=== PATIENT | female | born 2000 | race Caucasian/White ===

== ENCOUNTER 2025-02-06 04:07 | Emergency (ER) | payer MEDICAID, SELFPAY ==
[2025-02-06 04:10] VITALS: BMI 17.2
--- NOTE | 2025-02-06 04:13 | EKG_ITS ---
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
[2025-02-06 04:30] VITALS: BP 122/83; PULSE 68; RESP 19; TEMP 36.6; O2SAT 100
--- NOTE | 2025-02-06 05:14 | XR_ITS ---
EXAMINATION: PA chest single view TECHNIQUE: Upright PA chest single view Date and time: February 06, 2025, 0543 hours INDICATIONS: Chest pain shortness of breath beginning 1 hour ago FINDINGS: Normal heart size Lungs are clear Thoracic dextroscoliosis 12 degrees IMPRESSION: No active disease
--- NOTE | 2025-02-06 05:15 | PD.EDRME ---
Rapid Medical Screening Exam [facility], [facility] Arrival date/time: 02/06/25 04:07 24M with history of anxiety and anemia presents to ED with intermittent L should pain and SOB. Patient denies URI symptoms. This episode started about 45 min ago when it woke her up. Chief Complaint: Chest Pain Vital signs: Vital Signs Temperature 97.9 F 02/06/25 04:30 Pulse Rate 68 02/06/25 04:30 Respiratory Rate 19 02/06/25 04:30 Blood Pressure 122/83 02/06/25 04:30 Pulse Oximetry (%) 100 02/06/25 04:30 Oxygen Delivery Method Room Air 02/06/25 04:30 Exam: Clear lungs and normal WOB. RRR. Some chest wall tenderness. Mildly anxious. Clinical Impression: anemia vs PE vs costochondritis vs anxiety
[2025-02-06 06:26] LABS: Basophils # (Auto) 0.1 Thou/mm3 (0.0-0.2); Basophils % (Auto) 1 % (0-2.5); Eosinophils # (Auto) 0.3 Thou/mm3 (0.0-0.5); Eosinophils % (Auto) 4 % (0-10); Hematocrit 41.2 % (36.0-46.0); Hemoglobin 13.5 g/dL (12.0-16.0); Immature Granulocytes Auto 0.03 Thou/mm3 (0.00-0.00); Lymphocytes # (Auto) 2.6 Thou/mm3 (1.0-4.8); Lymphocytes % (Auto) 36 % (10-50); Mean Corpuscular HGB Conc 32.8 g/dl (31.0-37.0); Mean Corpuscular Hemoglobin 28.7 pg (25.0-35.0); Mean Corpuscular Volume 88 fL (80-100); Monocytes # (Auto) 0.6 Thou/mm3 (0.0-0.8); Monocytes % (Auto) 9 % (0-12); Neutrophils # (Auto) 3.7 Thou/mm3 (1.8-7.7); Neutrophils % (Auto) 51 % (37-80); Nucleated Red Blood Cell # 0.00 Thou/mm3 (0.00-0.00); Nucleated Red Blood Cell % 0 /100 WBC (0); Platelet Count 118 Thou/mm3 (140-440); RDW Standard Deviation 39.3 fL (36.4-46.3); Red Blood Count 4.70 Miln/mm3 (4.00-5.20); White Blood Count 7.4 Thou/mm3 (3.6-11.0)
[2025-02-06 06:58] LABS: Alanine Aminotransferase 8 U/L (10-49); Albumin, Serum 5.0 gm/dL (3.5-5.0); Albumin/Globulin Ratio 2.0 (1.2-2.2); Alkaline Phosphatase 112 U/L (46-116); Anion Gap 9 (7-16); Aspartate Amino Transferase 17 U/L (0-34); BUN/Creatinine Ratio 14 Ratio (12-20); Bilirubin,Total 0.4 mg/dL (0.3-1.2); Blood Urea Nitrogen 10 mg/dL (9-23); Calcium 9.7 mg/dL (8.3-10.6); Calcium (Corrected) 9.7 mg/dL (8.5-10.1); Carbon Dioxide 28.4 mMol/L (20.0-31.0); Chloride 105 mMol/L (98-107); Creatinine (Component) 0.7 mg/dL (0.6-1.3); Estimated Creatinine Clearance 95.9 mL/min (>60); Globulin 2.5 gm/dL (2.3-3.5); Glucose 119 mg/dL (74-106); Osmolality,Calculated 283 (275-295); Potassium 3.9 mMol/L (3.4-5.1); Sodium 142 mMol/L (136-145); Total Protein 7.5 gm/dL (5.7-8.2); Troponin I < 0.002 ng/mL (0.0-0.045); eGFR > 60 See Note
--- NOTE | 2025-02-06 07:35 | EDNOTE_ITS ---
ED Chest Pain RME/HPI General Chief Complaint: Chest Pain Stated Complaint: LEFT SIDED CHEST PAIN, LEFT SHOULDER PAIN, ABD TALYA Time Seen by Provider: 02/06/25 06:52 Arrival date/time: 02/06/25 04:07 24-year-old female presents to the emergency department today for complaint of chest pain patient reports symptom onset today patient does report history of anxiety Limitations: no limitations RME / HPI RME / HPI narrative: 02/06/25 04:07 24M with history of anxiety and anemia presents to ED with intermittent L should pain and SOB. Patient denies URI symptoms. This episode started about 45 min ago when it woke her up. Exam: Clear lungs and normal WOB. RRR. Some chest wall tenderness. Mildly anxious. Impression: anemia vs PE vs costochondritis vs anxiety Related Data Home Medications ?Medication ?Instructions ?Recorded ?Confirmed No Known Home Medications 09/23/18 07/12/04 Allergies Allergy/AdvReac Type Severity Reaction Status Date / Time No Known Allergies Allergy Verified 02/06/25 04:09 Review of Systems Review of Systems Systems Reviewed: All systems reviewed, normal except as documented Constitutional Constitutional: Reports system reviewed and no additional complaints, except as documented, Denies fever(s) and Denies headache(s) Eyes Eyes: Reports system reviewed and no additional complaints, except as documented and Denies blurry vision ENT Ears, Nose, Mouth, and Throat: Reports system reviewed and no additional complaints, except as documented, Denies headache(s), Denies nasal congestion and Denies nasal discharge Cardiovascular Cardiovascular: Reports system reviewed and no additional complaints, except as documented, Reports chest pain and Denies dyspnea Respiratory Respiratory: Reports system reviewed and no additional complaints, except as documented, Denies chest congestion, Denies cough and Denies dyspnea Gastrointestinal Gastrointestinal: Reports system reviewed and no additional complaints, except as documented and Denies abdominal pain Integumentary/Breasts Skin/Breast: Reports system reviewed and no additional complaints, except as documented and Denies rash Neurologic Neurologic: Reports system reviewed and no additional complaints, except as documented, Reports as per HPI and Denies headache(s) Psychiatric Psychiatric: Reports system reviewed and no additional complaints, except as documented and Reports anxiety Past Medical History Past Medical History CARDIAC: Negative Congestive Heart Failure RESPIRATORY: Negative Chronic Obstructive Pulmonary Disease (COPD) GENITOURINARY: Negative Renal Disease ENDOCRINE: Negative Diabetes Mellitus Type 1 or Diabetes Mellitus Type 2 Social History SMOKING STATUS: Never smoker ED Exam General Limitations: Present no limitations General appearance: Present alert and in no apparent distress Head Head exam: Present atraumatic, normocephalic and normal inspection Eye Eye exam: Present normal appearance, PERRL and EOMI; Absent conjunctival injection ENT ENT exam: Present normal exam, normal oropharynx and mucous membranes moist Neck Neck exam: Present normal inspection, full ROM and trachea midline Chest Chest inspection: Present normal inspection and symmetric chest wall rise Respiratory Respiratory exam: Present normal lung sounds bilaterally; Absent respiratory distress Cardiovascular Cardiovascular exam: Present regular rate, normal rhythm and normal heart sound s; Absent bradycardia, tachycardia or irregular rhythm Abdominal Exam Abdominal exam: Present soft and normal bowel sounds; Absent distention, tenderness, guarding, rebound or rigidity Extremities Exam Extremities exam: Present normal inspection and full ROM Back Exam Back exam: Present normal inspection and full ROM Neurological Exam Neurological exam: Present alert, oriented X3 and CN II-XII intact Psychiatric Psychiatric exam: Present normal affect and normal mood Skin Skin exam: Present warm, dry, intact and normal color Course Quality Measures none Orders Category Date Time Status EKG (ED ONLY) *Do not use* NOW Care 02/06/25 04:13 Completed EKG (ED Only) Stat Exams 02/06/25 04:13 Ordered XR chest 1V portable Stat Exams 02/06/25 05:14 Completed CBC Stat Lab 02/06/25 06:00 Completed CMP [Comprehensive Metabolic Panel] Stat Lab 02/06/25 06:00 Completed Troponin I Stat Lab 02/06/25 06:00 Completed Vital Signs Vital signs: Vital Signs Temperature 97.9 F 02/06/25 04:30 Pulse Rate 68 02/06/25 04:30 Respiratory Rate 19 02/06/25 04:30 Blood Pressure 122/83 02/06/25 04:30 Pulse Oximetry (%) 100 02/06/25 04:30 Oxygen Delivery Method Room Air 02/06/25 04:30 O2 saturation 100% room air within normal limits PROCEDURES: EKG Interpretation #1: Date of EK02/06/25 Time of EK:18 Rate: 73 Interpretation: Interpreted by me EKG Impression: Normal sinus rhythm, No acute ST-T changes, No ectopy, No ischemic changes, Normal QRS, Normal intervals and Normal axis Chest Pain MDM Narrative MDM Narrative:: 24-year-old female presents to the emergency department today for complaint of chest pain patient reports symptom onset today patient does report history of an xiety Clinically patient very well-appearing does not appear ill or toxic Lab work imaging and EKG reviewed EKG within normal limits Troponin is negative X-ray normal Patient does report that she does have anxiety and believes this may be the cause of her symptoms I do believe anxiety is definitely playing a part in her chest pain today. Patient discharged home in no distress to follow-up with primary care doctor in the next 24 to 48 hours and for any worsening symptoms to return to the ER immediately Patient data External records reviewed:: [facility] previous records Clinical information provided by:: patient Social determinants that could affect healthcare access:: none Patient has the following chronic illnesses:: Anxiety How is presenting disease/condition affected by chronic disease/condition?: caused by Evaluation data The following diagnostics were reviewed and interpreted by me:: lab results, radiology exam(s) and EKG tracing(s) Lab and/or radiology exams considered but not ordered:: Labs, radiology, EKG obtained Interpretation Summary: Reviewed by me Medications / Prescriptions Medications or Prescriptions considered but not ordered:: Given no meds Medication administrations:: No meds Consultations Consultation(s) initiated? (list below): No Diagnosis Chest Pain Differential Diagnosis: stable angina, atypical chest pain, costochondritis and chest pain Most likely diagnosis given after review of the tests above:: Anxiety Admission Indicated Admission indicated?: not indicated Admission Request Was there a request for admission?: No Disposition Plan Disposition Plan: Discharge Discharge Attestation Discharge Attestation: The patient and all family members were given an opportunity to ask questions and understood the discharge instructions. Discharge instructions specifically effects, indications for sooner follow up or return to the emergency department, and the expected course of current diagnosis. Patient condition: Stable Discharge Plan Plan Patient Disposition: HOME (Self Care) Discharge Disposition comment: stable Prescriptions/Referrals Prescriptions/Med Rec: No Action No Known Home Medications Referrals: No Primary/Family,Physician [Primary Care Provider] - In 1 week Problem List Clinical Impression: Atypical chest pain, Anxiety Patient/Caregiver Discharge Instructions Education Materials: ED Anxiety Reaction Additional Instructions: Please follow up with your primary care doctor in the next 24-48hrs for any worsening symptoms return here immediately Print Language: [place] Stand Alone Forms: Marisol Award Info., Patient Portal Info Letter PA/SENIOR HYDROGEOLOGIST Supervising Physician DEMETRIS/SENIOR HYDROGEOLOGIST Supervising Physician: Dr. burrell
== END 2025-02-06 07:49 | disposition home or self-care (01) ==
PROVIDERS: Physician Assistant; Emergency Provider Emergency Medicine
DX: R07.89 Other chest pain (principal); F41.1 Generalized anxiety disorder
CPT/HCPCS: 36415; 71045; 80053; 84484; 85025; 93005; 99283